=== PATIENT | male | born 1985 ===

== ENCOUNTER 2024-04-02 04:30 | Emergency (ER) | payer OTHER ==
[~2024-04-02] VITALS: Ht 180.3 cm; Wt 102.3 kg
[2024-04-02 04:40] VITALS: BP 144/97; PULSE 89; RESP 19; TEMP 97.9; O2SAT 100
[2024-04-02] MEDS ORDERED: AMOX-117 PO (05:14)
== END 2024-04-02 05:21 | disposition home or self-care (01) ==
LOC: ER 04:31
DX: K08.89 Other specified disorders of teeth and supporting structures (principal); M54.2 Cervicalgia
CPT/HCPCS: 99283